=== PATIENT | male | born 1965 | race Caucasian/White ===

== ENCOUNTER 2017-07-31 10:54 | Emergency (ER) | payer OTHER ==
[2017-07-31 11:30] LABS: BASOPHILS 0.2 % (0-2); HEMATOCRIT 42.3 % (42.0-54.0); HEMOGLOBIN 14.2 g/dL (13.5-17.5); IMMATURE GRANULOCYTES 0.5 % (0-5); LYMPHOCYTES 19.3 % (15-50); MCH 31.7 pg (26.0-34.0); MCHC 33.6 g/dL (31.0-37.0); MCV 94.4 fL (80.0-100.0); MEAN PLATELET VOLUME 10.2 fL (7.4-10.4); MONOCYTES 9.6 % (2-11); NEUTROPHILS 69.4 % (40-80); PLATELET COUNT 187 10x3/uL (130-400); RBC 4.48 10x6/uL (4.20-6.10); RDW 13.8 % (11.5-14.5)
[2017-07-31 11:43] LABS: APPEARANCE CLEAR (CLEAR); BILIRUBIN NEGATIVE (NEGATIVE); COLOR YELLOW (YELLOW); GLUCOSE 1000 mg/dL (NEGATIVE); KETONE NEGATIVE (NEGATIVE); NITRITE NEGATIVE (NEGATIVE); PROTEIN NEGATIVE (NEGATIVE); UROBILINOGEN NORMAL (NORMAL)
[2017-07-31 11:43] LABS: ALBUMIN 2.4 g/dL (3.4-5.0); ANION GAP 14.6 mmol/L (8-16); BILIRUBIN - TOTAL 1.27 mg/dL (0.2-1.3); CALCIUM 8.3 mg/dL (8.5-10.1); CARBON DIOXIDE 24.5 mmol/L (21.0-32.0); CREATININE - SERUM 1.3 mg/dL (0.6-1.3); POTASSIUM - SERUM 4.1 mmol/L (3.5-5.1); PROTEIN - SERUM 7.9 g/dL (6.4-8.2)
[2017-07-31 11:44] LABS: BACTERIA FEW /hpf (NONE SEEN); EPITHELIAL CELLS OCC /hpf (0-5); MUCUS <1+ /lpf (NONE SEEN); RED CELLS - URINE 0-5 /hpf (0-5); WHITE CELLS - URINE 0-5 /hpf (0-5)
[2017-07-31 12:09] LABS: AMYLASE - SERUM 24 U/L (25-115); LIPASE 244 U/L (73-393)
== END 2017-07-31 15:32 | disposition home or self-care (01) ==
LOC: D.ER 10:54
PROVIDERS: Family Medicine
DX: R10.9 Unspecified abdominal pain (principal); R18.8 Other ascites; E11.9 Type 2 diabetes mellitus without complications; I10 Essential (primary) hypertension

== ENCOUNTER → 2017-08-08 14:14 | Outpatient (CLI) | payer OTHER | END | disposition home or self-care (01) | LOC: D.CT 14:14 | DX: R07.9 Chest pain, unspecified (principal) ==

== ENCOUNTER 2017-11-14 18:55 | Inpatient (IN) | payer OTHER ==
[~2017-11-14] VITALS: Ht 188 cm; Wt 81.8 kg
--- NOTE | ~2017-11-14 | OP ---
PATIENT NAME: RICARDO GAVIN MEDICAL RECORD: [id number] :63 LOCATION:D.M2 [id number].[id number] ADMISSION DATE:11/15/17 SURGEON: PAMELLA ÁLVAREZ MD DATE OF OPERATION: 11/16/2017 PREOPERATIVE DIAGNOSIS: Infected hematoma of the right posterior thigh. POSTOPERATIVE DIAGNOSIS: Large abscess of the right posterior thigh and the hamstring muscle. PROCEDURES: 1. Excisional debridement of the large abscess, right posterior thigh to include skin, subcutaneous tissue, portions of fat, fascia, and muscle. 2. Application of wound VAC. Please note the wound diameters: Length 8 cm, width 4 cm, depth 4 cm, superior undermining approximately 10 cm, inferior undermining approximately 6 cm. SURGEON: Pamella Álvarez MD ANESTHESIA: General. INTRAOPERATIVE COMPLICATIONS: None. SUMMARY OF PATHOLOGIC FINDINGS: The area associated with MRI was thought to be a hematoma was clearly an infected hematoma. Upon opening substantial amount of purulent material was evacuated. 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 He was having normal pain and sequelae with that following; however, over the course of the last 48 hours, he has developed significant fever. Inflammatory markers were high as was his white blood cell count with a left shift. I felt like that it was reasonable to explore this area as a source of infection and indeed it was. OPERATIVE SUMMARY IN DETAIL: After obtaining the appropriate preoperative orthopedic surgery consult as well as anesthetic consultation, evaluation and clearance, the patient was brought to the operating room and on his hospital bed he was intubated. He was then placed on the operating room table in a prone position. All pressure points were well padded to include ischial tuberosity as well as chest padding, knee padding, and ankle padded. The patient's right lower extremity was prepped and draped in a routine sterile fashion up to the gluteal fold. At this point, an incision was made over the area thought to be the most likely area for the abscess as seen on MRI and indeed upon entering the fascial plane, substantial amounts of purulence was noted. Cultures were taken at this time. Serial and sequential debridement was done with both scalpel, rongeur as well as curettage. The infection actually tracked all the way to the ischial tuberosity, which was seen to be fractured on the MRI. I cannot know at this point whether or not there is osteomyelitic involvement; however, did not seem to show that on the MRI. Distally, it tracked approximately 6 cm down the posterior medial aspect of the thigh. Approximately 12 liters of fluid was irrigated with pulsatile lavage cigar packing examiner. When all nonviable material was removed, a wound VAC was applied in double layer. It was placed on 125 mm of continuous suction at medium intensity. The patient was then awakened and taken to recovery room in stable condition. All final needle and sponge counts were correct. OPERATIVE REPORT [id number] RICARDO GAVIN TRANSINT:[id number] Voice Confirmation ID: [id number] DOCUMENT ID: [id number] 11/20/2017 Edited to correct date of surgery, dmmichel. PREETI CHAVES, PAMELLA TAN at 1606 CC: [id number] DICTATION DATE: 11/17/17 1131 DOCUMENT MANAGEMENT CONSULTANT: 11/17/17 1143 ADM IN [facility] [address] [place] [address]
[2017-11-14 20:24] LABS: ALBUMIN 1.7 g/dL (3.4-5.0); ALKALINE PHOSPHATASE 360 U/L (46-116); ALT (SGPT) 28 U/L (10-68); BILIRUBIN - TOTAL 1.46 mg/dL (0.2-1.3); CALCIUM 8.4 mg/dL (8.5-10.1); CARBON DIOXIDE 30.6 mmol/L (21.0-32.0); CHLORIDE - SERUM 89 mmol/L (98-107); CREATININE - SERUM 1.2 mg/dL (0.6-1.3); POTASSIUM - SERUM 3.8 mmol/L (3.5-5.1); SODIUM 121 mmol/L (136-145); UREA NITROGEN 19 mg/dL (7-18); eGFR NON AFRICAN AMERICAN 67 mL/min (90-120)
[2017-11-14 20:28] LABS: CALC OSMOLALITY 269 mosm/kg (275-300); GLUCOSE 539 mg/dL (74-106)
[2017-11-14 20:32] LABS: APPEARANCE CLEAR (CLEAR); BASOPHILS 0.1 % (0-2); BILIRUBIN NEGATIVE (NEGATIVE); COLOR YELLOW (YELLOW); EOSINOPHILS 0.1 % (0-7); GLUCOSE 1000 mg/dL (NEGATIVE); HEMOGLOBIN 13.3 g/dL (13.5-17.5); IMMATURE GRANULOCYTES 0.7 % (0-5); KETONE NEGATIVE (NEGATIVE); KETONE - SERUM NEGATIVE (NEGATIVE); MCH 30.9 pg (26.0-34.0); MCHC 34.1 g/dL (31.0-37.0); MCV 90.7 fL (80.0-100.0); MEAN PLATELET VOLUME 9.9 fL (7.4-10.4); MONOCYTES 5.5 % (2-11); NEUTROPHILS 85.6 % (40-80); NITRITE NEGATIVE (NEGATIVE); PLATELET COUNT 309 10x3/uL (130-400); PROTEIN NEGATIVE (NEGATIVE); RDW 13.9 % (11.5-14.5); UROBILINOGEN NORMAL (NORMAL); WBC 19.6 10x3/uL (4.8-10.8)
[2017-11-15] VITALS (13 sets, daily range): BP systolic 99–129; BP diastolic 57–89; BMI 23.1
[2017-11-15 03:09] LABS: ERYTHROCYTE SEDIMENTATION RATE 76 mm/hr (0-20)
[2017-11-15 09:11] LABS: BASOPHILS 0.2 % (0-2); EOSINOPHILS 0.2 % (0-7); HEMATOCRIT 33.6 % (42.0-54.0); HEMOGLOBIN 11.5 g/dL (13.5-17.5); IMMATURE GRANULOCYTES 0.6 % (0-5); LYMPHOCYTES 9.1 % (15-50); MCH 30.7 pg (26.0-34.0); MCHC 34.2 g/dL (31.0-37.0); MCV 89.6 fL (80.0-100.0); MEAN PLATELET VOLUME 9.7 fL (7.4-10.4); MONOCYTES 6.1 % (2-11); NEUTROPHILS 83.8 % (40-80); PLATELET COUNT 250 10x3/uL (130-400); RBC 3.75 10x6/uL (4.20-6.10); RDW 13.8 % (11.5-14.5); WBC 18.8 10x3/uL (4.8-10.8)
[2017-11-15 09:20] LABS: ALBUMIN 1.4 g/dL (3.4-5.0); ALKALINE PHOSPHATASE 283 U/L (46-116); ALT (SGPT) 21 U/L (10-68); BILIRUBIN - TOTAL 0.95 mg/dL (0.2-1.3); CALCIUM 7.3 mg/dL (8.5-10.1); CARBON DIOXIDE 28.5 mmol/L (21.0-32.0); CHLORIDE - SERUM 96 mmol/L (98-107); CREATININE - SERUM 0.9 mg/dL (0.6-1.3); PROTEIN - SERUM 6.1 g/dL (6.4-8.2); SODIUM 129 mmol/L (136-145); UREA NITROGEN 17 mg/dL (7-18); eGFR NON AFRICAN AMERICAN > 90 mL/min (90-120)
[2017-11-15 09:21] LABS: CALC OSMOLALITY 270 mosm/kg (275-300); GLUCOSE 282 mg/dL (74-106)
[2017-11-16 01:16] VITALS: BP 109/71
[2017-11-16 04:30] VITALS: BP 104/75
[2017-11-16 06:34] LABS: BASOPHILS 0.1 % (0-2); EOSINOPHILS 0.2 % (0-7); HEMATOCRIT 36.1 % (42.0-54.0); HEMOGLOBIN 12.2 g/dL (13.5-17.5); IMMATURE GRANULOCYTES 0.5 % (0-5); LYMPHOCYTES 8.3 % (15-50); MCH 30.2 pg (26.0-34.0); MCHC 33.8 g/dL (31.0-37.0); MCV 89.4 fL (80.0-100.0); MEAN PLATELET VOLUME 9.6 fL (7.4-10.4); MONOCYTES 5.8 % (2-11); NEUTROPHILS 85.1 % (40-80); PLATELET COUNT 279 10x3/uL (130-400); RBC 4.04 10x6/uL (4.20-6.10); RDW 13.8 % (11.5-14.5); WBC 17.6 10x3/uL (4.8-10.8)
[2017-11-16 06:44] LABS: ALBUMIN 1.4 g/dL (3.4-5.0); ALKALINE PHOSPHATASE 299 U/L (46-116); ALT (SGPT) 22 U/L (10-68); BILIRUBIN - TOTAL 1.02 mg/dL (0.2-1.3); CALC OSMOLALITY 270 mosm/kg (275-300); CALCIUM 7.5 mg/dL (8.5-10.1); CARBON DIOXIDE 26.5 mmol/L (21.0-32.0); CHLORIDE - SERUM 97 mmol/L (98-107); CREATININE - SERUM 0.9 mg/dL (0.6-1.3); GLUCOSE 263 mg/dL (74-106); POTASSIUM - SERUM 3.1 mmol/L (3.5-5.1); PROTEIN - SERUM 6.8 g/dL (6.4-8.2); SODIUM 130 mmol/L (136-145); UREA NITROGEN 14 mg/dL (7-18); eGFR NON AFRICAN AMERICAN > 90 mL/min (90-120)
[2017-11-16 08:01] VITALS: BP 152/78
[2017-11-16 11:21] VITALS: BP 144/72
[2017-11-16 13:28] VITALS: Ht 188 cm; Wt 81.8 kg
[2017-11-16 15:33] VITALS: BP 155/64
[2017-11-16 20:57] VITALS: BP 110/76
[2017-11-17 01:26] VITALS: BP 110/91
[2017-11-17 04:00] VITALS: BP 109/77
[2017-11-17 05:19] LABS: BASOPHILS 0.2 % (0-2); EOSINOPHILS 0.4 % (0-7); HEMATOCRIT 36.9 % (42.0-54.0); HEMOGLOBIN 12.4 g/dL (13.5-17.5); IMMATURE GRANULOCYTES 0.9 % (0-5); LYMPHOCYTES 8.8 % (15-50); MCH 30.7 pg (26.0-34.0); MCHC 33.6 g/dL (31.0-37.0); MCV 91.3 fL (80.0-100.0); MEAN PLATELET VOLUME 9.5 fL (7.4-10.4); MONOCYTES 4.1 % (2-11); NEUTROPHILS 85.6 % (40-80); PLATELET COUNT 284 10x3/uL (130-400); RBC 4.04 10x6/uL (4.20-6.10); RDW 14.1 % (11.5-14.5); WBC 18.1 10x3/uL (4.8-10.8)
[2017-11-17 05:56] LABS: ALBUMIN 1.4 g/dL (3.4-5.0); ANION GAP 9.8 mmol/L (8-16); BILIRUBIN - TOTAL 0.94 mg/dL (0.2-1.3); C-REACTIVE PROTEIN 13.7 mg/dL (0.0-0.9); CALCIUM 7.6 mg/dL (8.5-10.1); CARBON DIOXIDE 26.6 mmol/L (21.0-32.0); CREATININE - SERUM 1.1 mg/dL (0.6-1.3); POTASSIUM - SERUM 3.4 mmol/L (3.5-5.1); PROTEIN - SERUM 6.8 g/dL (6.4-8.2)
[2017-11-17 06:50] LABS: ERYTHROCYTE SEDIMENTATION RATE 76 mm/hr (0-20)
[2017-11-17 08:30] VITALS: BP 107/71
[2017-11-17 12:01] VITALS: BP 94/65
[2017-11-17 16:14] VITALS: BP 107/72
[2017-11-17 20:00] VITALS: BP 98/69
[2017-11-18] VITALS: BP 105/69
[2017-11-18 04:00] VITALS: BP 100/72
[2017-11-18 05:19] LABS: BASOPHILS 0.3 % (0-2); EOSINOPHILS 1.4 % (0-7); HEMATOCRIT 36.7 % (42.0-54.0); IMMATURE GRANULOCYTES 1.4 % (0-5); MCH 29.9 pg (26.0-34.0); MCHC 32.7 g/dL (31.0-37.0); MCV 91.5 fL (80.0-100.0); MEAN PLATELET VOLUME 9.1 fL (7.4-10.4); MONOCYTES 5.9 % (2-11); PLATELET COUNT 263 10x3/uL (130-400); RBC 4.01 10x6/uL (4.20-6.10); RDW 14.3 % (11.5-14.5)
[2017-11-18 05:59] LABS: ALBUMIN 1.3 g/dL (3.4-5.0); ALKALINE PHOSPHATASE 299 U/L (46-116); ALT (SGPT) 26 U/L (10-68); BILIRUBIN - TOTAL 0.95 mg/dL (0.2-1.3); CALCIUM 7.6 mg/dL (8.5-10.1); CARBON DIOXIDE 26.6 mmol/L (21.0-32.0); CHLORIDE - SERUM 99 mmol/L (98-107); POTASSIUM - SERUM 3.6 mmol/L (3.5-5.1); PROTEIN - SERUM 6.8 g/dL (6.4-8.2); SODIUM 130 mmol/L (136-145); UREA NITROGEN 11 mg/dL (7-18); eGFR NON AFRICAN AMERICAN 83 mL/min (90-120)
[2017-11-18 06:01] LABS: CALC OSMOLALITY 264 mosm/kg (275-300); GLUCOSE 193 mg/dL (74-106)
[2017-11-18 07:59] VITALS: BP 128/62
[2017-11-18 11:06] VITALS: BP 131/68
[2017-11-18 15:06] VITALS: BP 136/73
[2017-11-18 20:00] VITALS: BP 107/71
[2017-11-19] VITALS: BP 108/72
[2017-11-19 04:00] VITALS: BP 111/79
[2017-11-19 05:09] LABS: BASOPHILS 0.2 % (0-2); EOSINOPHILS 1.2 % (0-7); HEMATOCRIT 37.1 % (42.0-54.0); HEMOGLOBIN 12.3 g/dL (13.5-17.5); IMMATURE GRANULOCYTES 1.5 % (0-5); LYMPHOCYTES 13.5 % (15-50); MCH 30.1 pg (26.0-34.0); MCHC 33.2 g/dL (31.0-37.0); MCV 90.9 fL (80.0-100.0); MEAN PLATELET VOLUME 8.7 fL (7.4-10.4); MONOCYTES 5.5 % (2-11); NEUTROPHILS 78.1 % (40-80); PLATELET COUNT 299 10x3/uL (130-400); RBC 4.08 10x6/uL (4.20-6.10); WBC 13.1 10x3/uL (4.8-10.8)
[2017-11-19 05:25] LABS: INR 1.26 (0.85-1.17); PROTIME 15.4 SECONDS (11.6-15.0)
[2017-11-19 05:33] LABS: % SATURATION 30 % (15-55); IRON 39 ug/dl (35-150); TOTAL IRON BIND CAPACITY 130 ug/dl (260-445); UNSAT IRON BIND CAPACITY 91 ug/dl (150-375)
[2017-11-19 05:51] LABS: ALBUMIN 1.4 g/dL (3.4-5.0); ALKALINE PHOSPHATASE 363 U/L (46-116); ALT (SGPT) 28 U/L (10-68); BILIRUBIN - TOTAL 0.97 mg/dL (0.2-1.3); CALC OSMOLALITY 269 mosm/kg (275-300); CALCIUM 7.4 mg/dL (8.5-10.1); CARBON DIOXIDE 27.5 mmol/L (21.0-32.0); CHLORIDE - SERUM 99 mmol/L (98-107); CHOL - HDL RATIO 4.3 ratio (2.3-4.9); CHOLESTEROL, TOTAL 77 mg/dL (0-200); CREATININE - SERUM 0.9 mg/dL (0.6-1.3); FERRITIN 416 ng/mL (3-244); GLUCOSE 240 mg/dL (74-106); HDL CHOLESTEROL 18 mg/dL (32-96); LDL CHOLESTEROL 49 mg/dL (0-100); LDL-HDL RATIO 2.7 ratio (1.5-3.5); POTASSIUM - SERUM 3.8 mmol/L (3.5-5.1); PROTEIN - SERUM 6.8 g/dL (6.4-8.2); SODIUM 131 mmol/L (136-145); TRIGLYCERIDE 50 mg/dL (30-200); UREA NITROGEN 11 mg/dL (7-18); eGFR NON AFRICAN AMERICAN > 90 mL/min (90-120)
[2017-11-19 08:43] VITALS: BP 128/76
[2017-11-19 15:27] VITALS: BP 122/71
[2017-11-19 20:00] VITALS: BP 111/71
[2017-11-20] VITALS: BP 105/72
[2017-11-20 04:00] VITALS: BP 113/76
[2017-11-20 06:12] LABS: BASOPHILS 0.3 % (0-2); EOSINOPHILS 1.3 % (0-7); HEMATOCRIT 36.4 % (42.0-54.0); IMMATURE GRANULOCYTES 1.5 % (0-5); LYMPHOCYTES 15.4 % (15-50); MCH 30.1 pg (26.0-34.0); MCV 91.2 fL (80.0-100.0); MEAN PLATELET VOLUME 8.8 fL (7.4-10.4); MONOCYTES 6.7 % (2-11); NEUTROPHILS 74.8 % (40-80); PLATELET COUNT 292 10x3/uL (130-400); RBC 3.99 10x6/uL (4.20-6.10); WBC 12.2 10x3/uL (4.8-10.8)
[2017-11-20 06:39] LABS: ALBUMIN 1.3 g/dL (3.4-5.0); ALKALINE PHOSPHATASE 328 U/L (46-116); ALT (SGPT) 24 U/L (10-68); BILIRUBIN - TOTAL 0.86 mg/dL (0.2-1.3); CALC OSMOLALITY 269 mosm/kg (275-300); CALCIUM 7.4 mg/dL (8.5-10.1); CARBON DIOXIDE 27.8 mmol/L (21.0-32.0); CHLORIDE - SERUM 101 mmol/L (98-107); CREATININE - SERUM 0.9 mg/dL (0.6-1.3); POTASSIUM - SERUM 3.7 mmol/L (3.5-5.1); PROTEIN - SERUM 6.8 g/dL (6.4-8.2); SODIUM 134 mmol/L (136-145); UREA NITROGEN 11 mg/dL (7-18); eGFR NON AFRICAN AMERICAN > 90 mL/min (90-120)
[2017-11-20 06:47] LABS: GLUCOSE 147 mg/dL (74-106)
[2017-11-20 08:47] VITALS: BP 105/72
[2017-11-20 17:26] VITALS: BP 102/67
[2017-11-20 20:00] VITALS: BP 102/68
[2017-11-21] VITALS: BP 105/69
[2017-11-21 07:15] LABS: EBV - EARLY ANTIGEN AB IGG <9.0 U/mL (0.0-8.9); EBV - NUCLEAR ANTIGEN AB IGG >600.0 U/mL (0.0-17.9); EBV VIRAL CAPSID AB IGM <36.0 U/mL (0.0-35.9)
[2017-11-21 08:16] LABS: HEP B CORE AB TOTAL Negative (Negative); HEPATITIS C ANTIBODY 0.2 (0.0-0.9)
[2017-11-21 08:33] VITALS: BP 108/68
[2017-11-21 11:43] VITALS: BP 101/67
[2017-11-21 15:42] VITALS: BP 105/71
[2017-11-21 20:23] VITALS: BP 104/75
[2017-11-22 01:14] VITALS: BP 107/68
[2017-11-22 04:42] VITALS: BP 103/72
[2017-11-22 05:44] LABS: BASOPHILS 0.3 % (0-2); HEMATOCRIT 36.7 % (42.0-54.0); HEMOGLOBIN 12.1 g/dL (13.5-17.5); IMMATURE GRANULOCYTES 0.6 % (0-5); LYMPHOCYTES 15.1 % (15-50); MCH 30.1 pg (26.0-34.0); MCV 91.3 fL (80.0-100.0); MEAN PLATELET VOLUME 8.8 fL (7.4-10.4); MONOCYTES 6.2 % (2-11); NEUTROPHILS 76.8 % (40-80); PLATELET COUNT 278 10x3/uL (130-400); RBC 4.02 10x6/uL (4.20-6.10); RDW 14.4 % (11.5-14.5); WBC 10.7 10x3/uL (4.8-10.8)
[2017-11-22 05:57] LABS: CALC OSMOLALITY 269 mosm/kg (275-300); CALCIUM 7.5 mg/dL (8.5-10.1); CARBON DIOXIDE 28.8 mmol/L (21.0-32.0); CHLORIDE - SERUM 101 mmol/L (98-107); CREATININE - SERUM 0.9 mg/dL (0.6-1.3); SODIUM 132 mmol/L (136-145); UREA NITROGEN 9 mg/dL (7-18); eGFR NON AFRICAN AMERICAN > 90 mL/min (90-120)
[2017-11-22 06:01] LABS: GLUCOSE 205 mg/dL (74-106)
[2017-11-22 08:00] VITALS: BP 106/71
[2017-11-22] MEDS ORDERED: PERCOCET 10/3251 TA1 PO (08:18)
[2017-11-22 11:15] LABS: ANA REFLEX - ANTICHROMATIN ABS 0.2 AI (0.0-0.9); ANA REFLEX - CENTROMERE B ABS <0.2 AI (0.0-0.9); ANA REFLEX - DBL STRANDED DNA 17 IU/mL (0-9); ANA REFLEX - DIRECT Positive (Negative); ANA REFLEX - JO-1 AB <0.2 AI (0.0-0.9); ANA REFLEX - RNP ANTIBODIES <0.2 AI (0.0-0.9); ANA REFLEX - SCL-70 <0.2 AI (0.0-0.9); ANA REFLEX - SJOGRENS AB SSA <0.2 AI (0.0-0.9); ANA REFLEX - SJOGRENS AB SSB <0.2 AI (0.0-0.9); ANA REFLEX - SMITH AB <0.2 AI (0.0-0.9)
[2017-11-22 11:39] VITALS: BP 106/71
[2017-11-22 15:56] VITALS: BP 105/70
[2017-11-24 18:09] LABS: SMOOTH MUSCLE ABS (ACTIN) 30 Units (0-19)
== END 2017-11-22 18:33 | disposition home health service (06) | DRG 464 ==
LOC: D.ER 18:55 → D.EDHOLD 11-15 02:52 → D.M2 11-15 02:52 → D.MS 11-21 23:19
PROVIDERS: Emergency Medicine; Family Medicine; Internal Medicine Gastroenterology; Internal Medicine Nephrology; Orthopaedic Surgery; Student in an Organized Health Care Education/Training Program
PROC: 0JBL0ZZ Excision of Right Upper Leg Subcutaneous Tissue and Fascia, Open Approach (ICD-10-PCS; 2017-11-16)
PROC: 0KBQ0ZZ Excision of Right Upper Leg Muscle, Open Approach (ICD-10-PCS; principal; 2017-11-16 12:45)
PROC: 02H633Z Insertion of Infusion Device into Right Atrium, Percutaneous Approach (ICD-10-PCS; 2017-11-22)
PROC: B244ZZZ Ultrasonography of Right Heart (ICD-10-PCS; 2017-11-22)
DX: M60.003 Infective myositis, unspecified right leg (principal); R78.81 Bacteremia; E87.1 Hypo-osmolality and hyponatremia; S32.611A Displaced avulsion fracture of right ischium, initial encounter for closed fracture; T79.A21A Traumatic compartment syndrome of right lower extremity, initial encounter; S70.11XA Contusion of right thigh, initial encounter; W17.89XA Other fall from one level to another, initial encounter; Y93.89 Activity, other specified; E11.65 Type 2 diabetes mellitus with hyperglycemia; D64.9 Anemia, unspecified; B95.61 Methicillin susceptible Staphylococcus aureus infection as the cause of diseases classified elsewhere; E88.09 Other disorders of plasma-protein metabolism, not elsewhere classified; T79.6XXA Traumatic ischemia of muscle, initial encounter; E86.0 Dehydration; K74.60 Unspecified cirrhosis of liver; Z91.19 Patient's noncompliance with other medical treatment and regimen

== ENCOUNTER → 2017-11-27 17:08 | Outpatient (CLI) | payer OTHER ==
[2017-11-16 13:28] VITALS: BMI 22.0
[~2017-11-27 17:08] MED LIST: PERCOCET 10/3251 TA1 PO
[2017-11-27 17:21] LABS: BASOPHILS 0.3 % (0-2); EOSINOPHILS 1.4 % (0-7); HEMATOCRIT 32.4 % (42.0-54.0); HEMOGLOBIN 10.5 g/dL (13.5-17.5); IMMATURE GRANULOCYTES 0.2 % (0-5); LYMPHOCYTES 17.7 % (15-50); MCH 30.3 pg (26.0-34.0); MCHC 32.4 g/dL (31.0-37.0); MCV 93.4 fL (80.0-100.0); MEAN PLATELET VOLUME 9.8 fL (7.4-10.4); MONOCYTES 6.5 % (2-11); NEUTROPHILS 73.9 % (40-80); PLATELET COUNT 247 10x3/uL (130-400); RBC 3.47 10x6/uL (4.20-6.10); RDW 14.8 % (11.5-14.5); WBC 8.6 10x3/uL (4.8-10.8)
[2017-11-27 17:40] LABS: CREATININE - SERUM 0.7 mg/dL (0.6-1.3)
[2017-11-27 18:20] LABS: ERYTHROCYTE SEDIMENTATION RATE 42 mm/hr (0-20)
== END | disposition home or self-care (01) ==
LOC: D.LABREF 17:08
PROVIDERS: Student in an Organized Health Care Education/Training Program
DX: L03.90 Cellulitis, unspecified (principal); Z51.81 Encounter for therapeutic drug level monitoring; Z79.2 Long term (current) use of antibiotics

== ENCOUNTER → 2017-12-04 09:49 | Outpatient (CLI) | payer OTHER ==
[2017-11-16 13:28] VITALS: BMI 22.0
[2017-12-04 10:46] LABS: BASOPHILS 0.8 % (0-2); EOSINOPHILS 3.8 % (0-7); HEMOGLOBIN 9.9 g/dL (13.5-17.5); IMMATURE GRANULOCYTES 0.2 % (0-5); LYMPHOCYTES 23.1 % (15-50); MCH 29.8 pg (26.0-34.0); MCHC 31.9 g/dL (31.0-37.0); MCV 93.4 fL (80.0-100.0); MEAN PLATELET VOLUME 9.8 fL (7.4-10.4); MONOCYTES 7.5 % (2-11); NEUTROPHILS 64.6 % (40-80); RBC 3.32 10x6/uL (4.20-6.10); RDW 14.9 % (11.5-14.5)
[2017-12-04 10:56] LABS: C-REACTIVE PROTEIN 1.5 mg/dL (0.0-0.9); CREATININE - SERUM 0.7 mg/dL (0.6-1.3)
[2017-12-04 10:59] LABS: PLATELET COUNT 187 10x3/uL (130-400)
[2017-12-04 11:54] LABS: ERYTHROCYTE SEDIMENTATION RATE 64 mm/hr (0-20)
== END | disposition home or self-care (01) ==
LOC: D.LABREF 09:49
PROVIDERS: Student in an Organized Health Care Education/Training Program
DX: M86.8X8 Other osteomyelitis, other site (principal)

== ENCOUNTER → 2017-12-18 17:04 | Outpatient (CLI) | payer OTHER ==
[2017-11-16 13:28] VITALS: BMI 22.0
[2017-12-18 17:37] LABS: BASOPHILS 0.5 % (0-2); HEMATOCRIT 31.2 % (42.0-54.0); HEMOGLOBIN 10.1 g/dL (13.5-17.5); IMMATURE GRANULOCYTES 0.3 % (0-5); LYMPHOCYTES 20.1 % (15-50); MCH 30.1 pg (26.0-34.0); MCHC 32.4 g/dL (31.0-37.0); MCV 93.1 fL (80.0-100.0); MONOCYTES 8.8 % (2-11); NEUTROPHILS 67.3 % (40-80); PLATELET COUNT 182 10x3/uL (130-400); RBC 3.35 10x6/uL (4.20-6.10); RDW 15.4 % (11.5-14.5)
[2017-12-18 18:01] LABS: C-REACTIVE PROTEIN 1.3 mg/dL (0.0-0.9); CREATININE - SERUM 0.8 mg/dL (0.6-1.3)
[2017-12-18 18:58] LABS: ERYTHROCYTE SEDIMENTATION RATE 57 mm/hr (0-20)
== END | disposition home or self-care (01) ==
LOC: D.LABREF 17:04
PROVIDERS: Student in an Organized Health Care Education/Training Program
DX: T14.8XXA Other injury of unspecified body region, initial encounter (principal); X58.XXXA Exposure to other specified factors, initial encounter; Z51.81 Encounter for therapeutic drug level monitoring; Z79.2 Long term (current) use of antibiotics

== ENCOUNTER → 2017-12-25 11:46 | Outpatient (CLI) | payer OTHER ==
[2017-11-16 13:28] VITALS: BMI 22.0
[2017-12-25 12:37] LABS: C-REACTIVE PROTEIN 1.2 mg/dL (0.0-0.9); CREATININE - SERUM 0.9 mg/dL (0.6-1.3)
[2017-12-25 13:50] LABS: ERYTHROCYTE SEDIMENTATION RATE 60 mm/hr (0-20)
== END | disposition home or self-care (01) ==
LOC: D.LABREF 11:46
PROVIDERS: Student in an Organized Health Care Education/Training Program
DX: M86.9 Osteomyelitis, unspecified (principal); Z51.81 Encounter for therapeutic drug level monitoring; Z79.2 Long term (current) use of antibiotics

== ENCOUNTER → 2018-11-05 10:30 | Outpatient (CLI) | payer OTHER ==
[2017-11-16 13:28] VITALS: BMI 22.0
[2018-11-05 11:22] LABS: INR 1.18 (0.85-1.17); PROTIME 14.5 SECONDS (11.6-15.0)
[2018-11-05 11:36] LABS: BILIRUBIN - DIRECT 0.37 mg/dL (0.00-0.30); BILIRUBIN - INDIRECT 0.49 mg/dL (0.00-1.00); BILIRUBIN - TOTAL 0.86 mg/dL (0.2-1.3); CREATININE - SERUM 1.3 mg/dL (0.6-1.3); PROTEIN - SERUM 7.6 g/dL (6.4-8.2)
== END | disposition home or self-care (01) ==
LOC: D.LAB 10:30
PROVIDERS: ATTEND Pediatrics
DX: Z02.71 Encounter for disability determination (principal)

== ENCOUNTER → 2018-11-09 12:49 | Outpatient (CLI) | payer OTHER ==
[2017-11-16 13:28] VITALS: BMI 22.0
== END | disposition home or self-care (01) ==
LOC: D.RAD 12:49
PROVIDERS: ATTEND Pediatrics
DX: Z02.71 Encounter for disability determination (principal)

== ENCOUNTER 2019-01-07 15:41 | Day surgery (SDC) | payer MEDICAID ==
[~2019-01-07] VITALS: Ht 188 cm; Wt 90.9 kg
[2019-01-07] VITALS (8 sets, daily range): BP systolic 131–153; BP diastolic 81–90
[2019-01-07 17:58] LABS: BASOPHILS 0.4 % (0-2); EOSINOPHILS 1.2 % (0-7); HEMOGLOBIN 12.6 g/dL (13.5-17.5); IMMATURE GRANULOCYTES 0.2 % (0-5); LYMPHOCYTES 19.6 % (15-50); MCH 31.8 pg (26.0-34.0); MCV 90.9 fL (80.0-100.0); MEAN PLATELET VOLUME 10.2 fL (7.4-10.4); MONOCYTES 5.7 % (2-11); NEUTROPHILS 72.9 % (40-80); RBC 3.96 10x6/uL (4.20-6.10); WBC 5.1 10x3/uL (4.8-10.8)
[2019-01-07 17:59] LABS: PLATELET COUNT 128 10x3/uL (130-400)
[2019-01-07 18:03] LABS: APTT 31.9 SECONDS (22.8-39.4); INR 1.06 (0.85-1.17); PROTIME 13.3 SECONDS (11.6-15.0)
[2019-01-07 18:06] LABS: ALBUMIN 2.9 g/dL (3.4-5.0); ALKALINE PHOSPHATASE 140 U/L (46-116); ALT (SGPT) 56 U/L (10-68); BILIRUBIN - TOTAL 1.07 mg/dL (0.2-1.3); CALC OSMOLALITY 282 mosm/kg (275-300); CALCIUM 8.4 mg/dL (8.5-10.1); CARBON DIOXIDE 23.5 mmol/L (21.0-32.0); CHLORIDE - SERUM 104 mmol/L (98-107); POTASSIUM - SERUM 3.9 mmol/L (3.5-5.1); PROTEIN - SERUM 7.2 g/dL (6.4-8.2); SODIUM 136 mmol/L (136-145); UREA NITROGEN 18 mg/dL (7-18); eGFR NON AFRICAN AMERICAN 83 mL/min (90-120)
[2019-01-07 18:08] LABS: GLUCOSE 260 mg/dL (74-106)
--- NOTE | 2019-01-07 19:30 | NUR ---
RESTING IN ROOM QUIETLY AT THIS TIME. WAITING ON OR FOR TRANSFER
[2019-01-07] MEDS ORDERED: PERCOCET 5-3251 TAB PO (20:59)
--- NOTE | 2019-01-07 21:06 | NUR ---
REC'D FROM SURGERY DEPT PER CART POST OP CLOSED REDUCTION RT SHOULDER. RT ARM IN SLING/BRACE. AT BEDSIDE. IV LEFT ARM OF NS AT KVO RATE. SITE CLEAR. MONITORING VS.
--- NOTE | 2019-01-07 22:10 | NUR ---
PATIENT GETTING DRESSED IV REMOVED WITH TIP INTACT. AT BEDSIDE DISCHARGE INSTRUCTION GIVEN TO PT AND RX FOR OXY GIVEN TO .
[2019-01-08 04:21] VITALS: BP 139/90; Ht 188 cm; Wt 90.9 kg
--- NOTE | 2019-01-08 09:24 | OP ---
PATIENT NAME: RICARDO GAVIN MEDICAL RECORD: [id number] :63 LOCATION:D.MS [id number] ADMISSION DATE:01/07/19 SURGEON: IAN MUSTAFA DO DATE OF OPERATION: 01/07/2019 PROCEDURE PERFORMED: Closed reduction of right shoulder dislocation. PREOPERATIVE DIAGNOSIS: Right shoulder dislocation with engaged Hill-Sachs lesion. POSTOPERATIVE DIAGNOSIS: Right shoulder dislocation with engaged Hill-Sachs lesion. INDICATIONS: Mr. Gavin is a 53-year-old male who fell today in a shop and sustained a right shoulder dislocation. I attempted to reduce him in the ER doing an intra-articular block. This did not work and decided to take him to the OR for better sedation. He is aware of the risks including recurrent dislocation, fracture, need for further surgery, continued pain, rotator cuff tear and need for followup. He was aware of those risks and signed the consent. SURGEON: Ian Mustafa DO DESCRIPTION OF PROCEDURE: The patient was taken to the operative suite, laid in the supine position, and given propofol. The timeout had been performed. Everyone is agreeance with correct side, site, patient and procedure. The reduction maneuver was then made and confirmed on x-ray both AP and [place]au view that the humeral head was indeed lined up with the glenoid, unable to glenoid. Once that was confirmed, he was placed in a sling with a pillow and immobilized and taken to recovery in stable condition. BLOOD LOSS: None. TRANSINT:[id number] Voice Confirmation ID: [id number] DOCUMENT ID: [id number] IAN MUSTAFA DO at 0924 CC: [id number] DICTATION DATE: 01/07/192053 PROCESS TANK TENDER: 01/08/19 0244 DIS IN 01/07/19 [facility] [address] [place] [address]
== END 2019-01-07 22:22 | disposition home or self-care (01) ==
LOC: OBSVTIME → D.ER 15:41 → D.OPS 15:41 → D.ER 21:12 → D.MS 21:12 → OBSVTIME 21:13 → D.OPS 22:22 → D.MS 22:22
PROVIDERS: Family Medicine; ATTEND Orthopaedic Surgery
DX: S43.004A Unspecified dislocation of right shoulder joint, initial encounter (principal); S42.291A Other displaced fracture of upper end of right humerus, initial encounter for closed fracture; W19.XXXA Unspecified fall, initial encounter; E11.9 Type 2 diabetes mellitus without complications

== ENCOUNTER → 2019-02-04 13:34 | Outpatient (CLI) | payer MEDICAID ==
[2019-01-08 04:21] VITALS: BMI 25.7
[~2019-02-04 13:34] MED LIST changes: +HYDROCODON-ACE1 EA10 PO; +HYDROCODON-ACE1 EAC2 PO; +KEFLEX500 MG PO; +PERCOCET 10-321 EAC1 PO; +PERCOCET 5-3251 TAB PO; +TRESIBA FL100 UNIT/1 SC; +ULTRAM50 MG PO; +VISTARIL50 MG PO
--- NOTE | 2019-02-04 14:44 | NUR ---
PATIENT RICARDO GAVIN 1965 RIGHT SHOULDER ARTHROGRAM. EXAM PERFORMED BY DR STONER. TIME OUT PERFORMED [address] STONER AND AUGUST SHAH RT(R)
== END | disposition home or self-care (01) ==
LOC: D.RAD 13:34
PROVIDERS: ATTEND Orthopaedic Surgery
DX: M25.511 Pain in right shoulder (principal)

== ENCOUNTER 2019-02-15 06:43 | Day surgery (SDC) | payer MEDICAID ==
[2019-02-14 10:33] LABS: HEMATOCRIT 38.6 % (42.0-54.0); HEMOGLOBIN 13.2 g/dL (13.5-17.5); MCH 31.7 pg (26.0-34.0); MCHC 34.2 g/dL (31.0-37.0); MCV 92.8 fL (80.0-100.0); MEAN PLATELET VOLUME 10.1 fL (7.4-10.4); RBC 4.16 10x6/uL (4.20-6.10); RDW 13.7 % (11.5-14.5); WBC 4.2 10x3/uL (4.8-10.8)
[2019-02-14 10:54] LABS: APTT 32.1 SECONDS (22.8-39.4); INR 1.17 (0.85-1.17); PROTIME 14.4 SECONDS (11.6-15.0)
[2019-02-14 10:56] LABS: BILIRUBIN - TOTAL 1.18 mg/dL (0.2-1.3); CALCIUM 8.4 mg/dL (8.5-10.1); CARBON DIOXIDE 27.3 mmol/L (21.0-32.0); CREATININE - SERUM 1.1 mg/dL (0.6-1.3); POTASSIUM - SERUM 4.3 mmol/L (3.5-5.1); PROTEIN - SERUM 7.8 g/dL (6.4-8.2)
[~2019-02-15] VITALS: Ht 185.4 cm; Wt 89.4 kg
[~2019-02-15 06:43] MED LIST changes: -HYDROCODON-ACE1 EAC2 PO; -KEFLEX500 MG PO; -PERCOCET 10-321 EAC1 PO; -ULTRAM50 MG PO; -VISTARIL50 MG PO
[2019-02-15 07:32] VITALS: BP 150/84; Ht 185.4 cm; Wt 89.4 kg
[2019-02-15] MEDS ORDERED: PERCOCET 10-321 EAC1 PO (12:08)
[2019-02-15] MEDS ORDERED: KEFLEX500 MG PO (12:08)
[2019-02-15] MEDS ORDERED: VISTARIL50 MG PO (12:08)
--- NOTE | 2019-02-15 12:58 | OP ---
PATIENT NAME: RICARDO GAVIN MEDICAL RECORD: [id number] :63 LOCATION:[facility] ADMISSION DATE: SURGEON: IAN MUSTAFA DO DATE OF OPERATION: 02/15/2019 PREOPERATIVE DIAGNOSES: Subacromial impingement and acromioclavicular joint arthritis as well as a rotator cuff tear, labral tear and biceps fraying. POSTOPERATIVE DIAGNOSES: Subacromial impingement and acromioclavicular joint arthritis as well as a rotator cuff tear, labral tear and biceps fraying. PROCEDURE PERFORMED: Right shoulder arthroscopy with capsular shift or labral repair of the anterior labrum and rotator cuff tendon repair, biceps tenotomy, subacromial decompression, distal clavicle excision. INDICATIONS: Mr. Gavin is a 53-year-old male who had a right shoulder dislocation about 2-3 weeks ago, he had a closed reduction in the OR. He got an MRI because he did not tolerate any kind of motion with it. He was seen to have a massive rotator cuff tear at the footprint of the supra and infraspinatus. The subscapularis was intact. He also had a torn labrum, anterior inferior labrum on the MRI and a small Hill-Sachs. This was discussed with him about what to do. He wanted it fixed as it did give him some pain. I told him that he would be very very stiff and he may need manipulation. Due to the fact we have to repair both and due to I could it may not be his last surgery, basically what I explained to him and the risk of infection, bleeding, damage to nerves and vessels, need for further surgery, blood clots, and even . He was okay with that as well as adhesive capsulitis and signed the consent. DESCRIPTION OF PROCEDURE: The patient received a block by anesthesia in the preoperative area. He was given 900 mg of clindamycin. He was taken to the operative suite, laid in the left lateral decubitus position with the right shoulder up. The right shoulder was then prepped and draped in sterile fashion. As he was sedated, an LMA was placed and the timeout was performed. Everyone was in agreement with the correct side, site, patient and procedure. Posterior portal was then injected into the shoulder joint with 60 cc of normal saline and then a 11-blade scalpel was used to establish a portal. The trocar was entered into the joint and massive labral tear was seen on the anterior labrum from the 2 o'clock position down to the 6 o'clock position and there were no fibers left of it, completely torn. The capsule was also very thin at that point. Two anterior portals were then established with an 18-gauge spinal needle and 11-blade scalpel and there trocars were placed in them as working portals. I attempted to repair the labrum, but it was too frayed and was not repairable. The capsule was then advanced and shifted with 3 different anchors starting inferiorly, moving superiorly and 2.9 PushLock were used to put them upon the face of the glenoid with a labral tape. After repairing the labrum, the subacromial space was then entered and a subacromial decompression was done as well as a distal clavicle excision, opening the AC joint up to 7-mm. The bicep tendon, when I was in the joint, was seen and it seemed to be frayed. It was tenotomized upon entering the joint and established an anterior portal with a burner. Up in the subacromial space, the AC joint was opened up and the distal clavicle was taken down as well as the subacromial space. Acromioplasty was performed. Massive rotator cuff tear was then seen. The shaver was brought into, debrided, and then the lateral portal had been established with an 18-gauge spinal needle and 11-blade scalpel. This was opened up with a 15-blade scalpel. Careful dissection was made down to the tear. Then, three anchors OPERATIVE REPORT [id number] RICARDO GAVIN were used to repair it starting anteriorly and removing posteriorly. A suture tape was used as well as FiberWire securing it from posterior to anterior and then putting 3 lateral row anchors and make a nice repair. The Regeneten was then used on top of that. A large graft from Regeneten was used securing it medially first and laterally and the bone. This site was then irrigated and the portal sites were closed with 4-0 Monocryl in an inverted interrupted fashion and the lateral site was closed with 2-0 Vicryl in inverted interrupted fashion, 4-0 Monocryl ran on the skin and then Dermabond was placed over all the incisions. He was then awakened and taken to recovery in stable condition. ESTIMATED BLOOD LOSS: Minimal. COMPLICATIONS: None. TRANSINT:[id number] Voice Confirmation ID: [id number] DOCUMENT ID: [id number] IAN MUSTAFA DO at 1258 CC: [id number] DICTATION DATE: 02/15/19 1204 GRAIN CLEANER AND TRANSFER OPERATOR: 02/15/19 1255 REG [place] [id number] [place] [id number]
--- NOTE | 2019-02-15 14:10 | NUR ---
PATIENT WALKS TO BATHROOM, VOIDS IN TOILET, WALKS WITHOUT UNSTEADINESS. DISCHARGE INSTRUCTIONS REVIEWED WITH PATIETN AND SPOUSE, DRESSED IN PERSONAL CLOTHING. 1420 DISCHARGED HOME VIA WHEELCHAIR TO PRIVATE VEHICLE WITH SPOUSE
== END 2019-02-15 14:20 | disposition home or self-care (01) ==
LOC: D.OPS 06:43
PROVIDERS: Anesthesiology; ATTEND Orthopaedic Surgery
DX: M25.811 Other specified joint disorders, right shoulder (principal); S43.421A Sprain of right rotator cuff capsule, initial encounter; X58.XXXA Exposure to other specified factors, initial encounter

== ENCOUNTER 2019-04-11 20:30 | Emergency (ER) | payer MEDICAID ==
[~2019-04-11] VITALS: Ht 185.4 cm; Wt 95.3 kg
[~2019-04-11 20:30] MED LIST changes: +KEFLEX500 MG PO; +PERCOCET 10-321 EAC1 PO; +VISTARIL50 MG PO
[2019-04-11 20:49] VITALS: Ht 185.4 cm; Wt 95.3 kg
[2019-04-11] MEDS ORDERED: ULTRAM50 MG PO (20:52)
[2019-04-11] MEDS ORDERED: HYDROCODON-ACE1 EAC2 PO (20:52)
[2019-04-11 21:17] LABS: BASOPHILS 0.7 % (0-2); EOSINOPHILS 1.8 % (0-7); HEMATOCRIT 31.3 % (42.0-54.0); HEMOGLOBIN 10.4 g/dL (13.5-17.5); IMMATURE GRANULOCYTES 0.2 % (0-5); LYMPHOCYTES 33.5 % (15-50); MCH 30.9 pg (26.0-34.0); MCHC 33.2 g/dL (31.0-37.0); MCV 92.9 fL (80.0-100.0); MEAN PLATELET VOLUME 10.1 fL (7.4-10.4); MONOCYTES 6.9 % (2-11); NEUTROPHILS 56.9 % (40-80); RBC 3.37 10x6/uL (4.20-6.10); RDW 14.3 % (11.5-14.5); WBC 8.3 10x3/uL (4.8-10.8)
[2019-04-11 21:19] LABS: PLATELET COUNT 144 10x3/uL (130-400)
[2019-04-11 21:26] LABS: APTT 32.7 SECONDS (22.8-39.4); INR 1.39 (0.85-1.17); PROTIME 16.5 SECONDS (11.6-15.0)
[2019-04-11 21:32] LABS: CALC OSMOLALITY 294 mosm/kg (275-300); CALCIUM 8.3 mg/dL (8.5-10.1); CARBON DIOXIDE 22.5 mmol/L (21.0-32.0); CHLORIDE - SERUM 108 mmol/L (98-107); CREATININE - SERUM 1.3 mg/dL (0.6-1.3); POTASSIUM - SERUM 3.8 mmol/L (3.5-5.1); SODIUM 140 mmol/L (136-145); UREA NITROGEN 20 mg/dL (7-18); eGFR NON AFRICAN AMERICAN 61 mL/min (90-120)
[2019-04-11 21:34] LABS: GLUCOSE 325 mg/dL (74-106)
[2019-04-11 21:45] LABS: ALBUMIN 2.5 g/dL (3.4-5.0); ALKALINE PHOSPHATASE 106 U/L (46-116); ALT (SGPT) 42 U/L (10-68); BILIRUBIN - TOTAL 0.92 mg/dL (0.2-1.3); LIPASE 203 U/L (73-393); PRO BNP 111 pg/mL (0-125)
[2019-04-11 21:46] LABS: TROPONIN-I < 0.017 ng/mL (0.000-0.060)
[2019-04-11 22:12] VITALS: BP 91/60
== END 2019-04-11 22:13 | disposition short-term general hospital (02) ==
LOC: D.ER 20:30
PROVIDERS: Family Medicine
DX: K92.2 Gastrointestinal hemorrhage, unspecified (principal); D64.89 Other specified anemias; I95.9 Hypotension, unspecified; E11.9 Type 2 diabetes mellitus without complications; Z79.4 Long term (current) use of insulin

== ENCOUNTER 2019-08-01 18:59 | Emergency (ER) | payer MEDICAID ==
[~2019-08-01] VITALS: Ht 185.4 cm; Wt 6.5 kg
[~2019-08-01 18:59] MED LIST changes: +HYDROCODON-ACE1 EAC2 PO; +ULTRAM50 MG PO
[2019-08-01 19:04] VITALS: Ht 185.4 cm; Wt 6.5 kg
[2019-08-01 19:32] LABS: BASOPHILS 0.8 % (0-2); EOSINOPHILS 1.4 % (0-7); HEMATOCRIT 31.8 % (42.0-54.0); HEMOGLOBIN 10.5 g/dL (13.5-17.5); IMMATURE GRANULOCYTES 0.2 % (0-5); LYMPHOCYTES 29.6 % (15-50); MCH 30.3 pg (26.0-34.0); MCV 91.6 fL (80.0-100.0); PLATELET COUNT 99 10x3/uL (130-400); RBC 3.47 10x6/uL (4.20-6.10); RDW 15.6 % (11.5-14.5)
[2019-08-01 19:36] LABS: APTT 35.1 SECONDS (22.8-39.4); INR 1.24 (0.85-1.17); PROTIME 15.5 SECONDS (11.6-15.0)
[2019-08-01 19:37] LABS: CALC OSMOLALITY 293 mosm/kg (275-300); CALCIUM 8.6 mg/dL (8.5-10.1); CARBON DIOXIDE 23.7 mmol/L (21.0-32.0); CHLORIDE - SERUM 108 mmol/L (98-107); CREATININE - SERUM 1.4 mg/dL (0.6-1.3); GLUCOSE 229 mg/dL (74-106); POTASSIUM - SERUM 4.6 mmol/L (3.5-5.1); SODIUM 139 mmol/L (136-145); UREA NITROGEN 38 mg/dL (7-18); eGFR NON AFRICAN AMERICAN 56 mL/min (90-120)
[2019-08-01] MEDS ORDERED: LISINOPRIL20 MG (19:40)
[2019-08-01] MEDS ORDERED: GABAPENTIN300 MG PO (19:40)
[2019-08-01 19:45] LABS: ALBUMIN 2.5 g/dL (3.4-5.0); ALKALINE PHOSPHATASE 114 U/L (30-120); ALT (SGPT) 45 U/L (10-68); AMYLASE - SERUM 31 U/L (25-115); BILIRUBIN - TOTAL 0.94 mg/dL (0.2-1.3); LIPASE 86 U/L (73-393); PROTEIN - SERUM 6.7 g/dL (6.4-8.2)
[2019-08-01 19:46] LABS: TROPONIN-I < 0.017 ng/mL (0.000-0.060)
[2019-08-01 19:49] LABS: BILIRUBIN NEGATIVE (NEGATIVE); GLUCOSE 500 mg/dL (NEGATIVE); KETONE NEGATIVE (NEGATIVE); NITRITE NEGATIVE (NEGATIVE); UROBILINOGEN NORMAL (NORMAL)
[2019-08-01 20:21] LABS: PLATELET ESTIMATE DECREASED
[2019-08-01 21:00] VITALS: BP 175/75
== END 2019-08-01 21:30 | disposition other institution (70) ==
LOC: D.ER 18:59
PROVIDERS: Emergency Medicine
DX: K92.2 Gastrointestinal hemorrhage, unspecified (principal); D62 Acute posthemorrhagic anemia; Z86.79 Personal history of other diseases of the circulatory system; R11.2 Nausea with vomiting, unspecified; E11.40 Type 2 diabetes mellitus with diabetic neuropathy, unspecified